=== PATIENT | female | born 1950 | race Caucasian/White ===

== ENCOUNTER 2020-06-09 18:08 | Emergency (ER) | payer MEDICARE, MEDICAID ==
[~2020-06-09] VITALS: Ht 160 cm; Wt 50.0 kg
[2020-06-09] MEDS ORDERED: LIDOcaine 2% 10ml TOPICAL JELLY (Urojet) MM ONE (19:05)
--- NOTE | 2020-06-09 19:17 | NUR ---
removed all hard stool from anal vault. I can feel more hard stool past the internal sphincter.
[2020-06-09 19:35] VITALS: BP 156/58
== END 2020-06-09 19:38 | disposition home or self-care (01) ==
LOC: ER 18:10
DX: K59.00 Constipation, unspecified (principal); F03.90 Unspecified dementia, unspecified severity, without behavioral disturbance, psychotic disturbance, mood disturbance, and anxiety
CPT/HCPCS: 99284